=== PATIENT | male | born 1995 | race Caucasian/White ===

== ENCOUNTER 2018-12-16 18:26 | Inpatient (IN) | payer OTHER ==
[~2018-12-16] VITALS: Ht 170.2 cm; Wt 56.7 kg
[2018-12-16 18:44] VITALS: BP 119/66
[2018-12-16 20:05] LABS: HEMOGLOBIN 13.2 gm/dL (14.0-18.0); MCH 30.4 pg (26.0-34.0); MCHC 35.1 g/dL (28.0-37.0); RBC 4.34 mil/uL (4.50-6.00); RDW 13.1 % (10.5-14.5)
[2018-12-16 20:06] LABS: HEMATOCRIT 37.5 % (42.0-52.0); MCV 86.4 fL (80.0-100.0); PLATELET COUNT 108 thou/uL (150-400); WBC 10.7 thou/uL (4.0-11.0)
[2018-12-16 20:09] LABS: CALCIUM 8.7 mg/dL (8.5-10.1); CREATININE 1.1 mg/dL (0.7-1.3); POTASSIUM 4.2 mmol/L (3.5-5.1)
[2018-12-16 20:34] LABS: ABSOLUTE NEUTROPHILS 8.2 thou/uL (1.4-8.2); ANISOCYTOSIS 1+; METAMYELOCYTES 2 %
[2018-12-16 20:52] LABS: URINE BILIRUBIN NEGATIVE (Negative); URINE BLOOD NEGATIVE (Negative); URINE CLARITY CLEAR; URINE COLOR YELLOW; URINE GLUCOSE-RANDOM* NEGATIVE (Negative); URINE KETONES 1+ (Negative); URINE LEUKOCYTES-REFLEX NEGATIVE (Negative); URINE NITRITE-REFLEX NEGATIVE (Negative); URINE PROTEIN (DIPSTICK) NEGATIVE (Negative); URINE UROBILINOGEN 0.2 E.U./dl (0.2-1.0)
[2018-12-16 22:12] VITALS: BP 90/40
--- NOTE | 2018-12-16 23:00 | NUR ---
Pt. admitted to the unit from the emergency room accompanied by staff. Admission assessment and history is completed.
--- NOTE | 2018-12-17 | NUR ---
Pt. c/o generalized pain everywhere and feels like the morphine is not controlling his pain. Called and spoke to Viky ARMENDARIZ and new orders received.
--- NOTE | 2018-12-17 04:00 | NUR ---
Pt. c/o itching and felt like the po benadryl was not helpful. Call placed to Viky ARMENDARIZ and new orders for iv push benadryl. (see orders). Fentanyl given for pain (see emar) and ivp benadryl given (see emar).
[2018-12-17 04:05] VITALS: BP 98/59
--- NOTE | 2018-12-17 06:00 | NUR ---
Pt. resting quietly in the bed and verbalized that he had gotten some sleep.
--- NOTE | 2018-12-17 06:19 | NUR ---
Pt. thought his rash looked worse and c/o itching all over. His rash covers most of his body and is spotty and red. Call placed to Viky ARMENDARIZ with new order for po benadryl. Pt. did verbalize that the fentanyl was helping with pain relief.
[2018-12-17 08:17] VITALS: BP 110/63
--- NOTE | 2018-12-17 13:47 | NUR ---
PT ADMITTED RELATED TO RASH,FEVER. CM REVIEWED CHART AND SPOKE WITH CARE TEAM. CM MET WITH PT AT BEDSIDE THIS DAY. PT IS A&O X4. CM ROLE INTRODUCED. PT INDICATED HE LIVES IN A MOBILE HOME WITH HIS SIG OTHER AND THEIR CHILD. HE ONDICATED THERE ARE TWO STEPS TO ENTER AND NONE INSIDE. 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 PT INDICATED HE HAS PCP MELISSA GUZMÁN BUT IS INTERESTED IN FINDIBG ANOTHER. PT INDICATED HE IS PATIENT PAY BUT THAT HE THINKS HE SHOULD HAVE [place] MEDICAID. CM NOTIFIED UR NURSE. PT TO RETURN HOME ONCE MEDICALLY STABLE. CM TO FOLLOW INDICATED WITH DC PLANNING.
[2018-12-17 15:19] VITALS: BP 122/65
[2018-12-17 19:11] VITALS: BP 130/74
--- NOTE | 2018-12-17 19:12 | NUR ---
PT STABLE THROUGHOUT SHIFT. PT C/O PAIN THROUGHOUT SHIFT WELL ITCHING. GAVE PAIN MEDS AND BENADRYL. PT RESTING, FAMILY AT BEDSIDE.
[2018-12-17 19:35] VITALS: BP 110/65
--- NOTE | 2018-12-17 22:40 | NUR ---
Pt. has been hinting to this nurse that he was thinking about leaving and wanted to know if he could leave with some prescriptions for his medications. Informed pt. that if he did leave it would be against medical advice. Pt. was educated on the risks of leaving and the benefits of staying in the hospital. Pt. requesting to leave. Mousie papers signed and [place] ARMENDARIZ was notified. He was medicated earlier for generalized pain (see emar) with no relief. Also, given benadryl for itching (see emar) with some relief noted. Rash is spotty and red on bilateral lower legs. Some flushing of the skin on chest and back. Pt. left AMA accompanied by spouse.
== END 2018-12-17 23:30 | disposition left against medical advice (07) | DRG 596 ==
LOC: ER 18:26 → EROBS 21:51 → 4W 21:51
PROVIDERS: Emergency Medicine; ADMIT Hospitalist
DX: L51.1 Stevens-Johnson syndrome (principal); E87.1 Hypo-osmolality and hyponatremia; B00.1 Herpesviral vesicular dermatitis; G43.909 Migraine, unspecified, not intractable, without status migrainosus; F17.210 Nicotine dependence, cigarettes, uncomplicated; F17.200 Nicotine dependence, unspecified, uncomplicated; Z53.21 Procedure and treatment not carried out due to patient leaving prior to being seen by health care provider; T37.0X5A Adverse effect of sulfonamides, initial encounter; Z88.8 Allergy status to other drugs, medicaments and biological substances; Y92.89 Other specified places as the place of occurrence of the external cause; Z88.2 Allergy status to sulfonamides
CPT/HCPCS: 10045